=== PATIENT | female | born 1950 | race Hispanic/Latino ===

== ENCOUNTER 2024-11-16 16:29 | Emergency (ER) | payer OTHER ==
[~2024-11-16] VITALS: Ht 160 cm; Wt 68.0 kg
--- NOTE | 2024-11-16 16:39 | ERN ---
General Stated Complaint: ABD PAIN, LITTLE TO NO APPETITE Time Seen by MD: 16:30 Source: patient History of Present Illness Initial Comments PATIENT IS A 74-YEAR-OLD FEMALE COMING IN TO BE EVALUATED FOR DECREASED APPETITE. PATIENT STATES THAT FOUR WEEKS AGO SHE WAS DIAGNOSED WITH INFLUENZA AND SINCE THEN SHE STARTED FEELING WEAK TO THE POINT BARELY ABLE TO AMBULATE. PATIENT WAS EVALUATED BY PCP AND WAS TOLD SHE HAD POSSIBILITY OF HAVING LEUKEMIA. PATIENT IS HERE FOR FURTHER EVALUATION. PER PATIENT'S PCP IS DR. HERNDON Allergies: Coded Allergies: No Known Allergies (Unverified Allergy, Unknown, 11/16/24) ROS Dictation CONSTITUTIONAL: NO CHILLS, NO FEVER, NO WEAKNESS, NO DIAPHORESIS, NO MALAISE. HEAD/FACE: NO SIGNS OF TRAUMA. EENT: NO EYE PAIN, NO BLURRED VISION, NO TEARING, NO DOUBLE VISION, NO EAR PAIN, NO EAR DISCHARGE, NO NOSE PAIN, NO NASAL CONGESTION, NO THROAT PAIN, NO THROAT SWELLING, NO MOUTH PAIN. RESPIRATORY: NO COUGH, NO ORTHOPNEA, NO SOB, NO STRIDOR, NO WHEEZING. CARDIOVASCULAR: NO CHEST PAIN, NO EDEMA, NO PALPITATIONS, NO SYNCOPE. GASTROINTESTINAL/ABDOMINAL: NO ABDOMINAL PAIN, NO CONSTIPATION, NO DIARRHEA, NO NAUSEA, NO VOMITING. GENITOURINARY: NO ABNORMAL DISCHARGE, NO DYSURIA, NO FREQUENT URINATION, NO HEMATURIA. NO COMPLAINTS OF PAIN IN THE GENITALS. MUSCULOSKELETAL: NO BACK PAIN, NO GOUT, NO JOINT PAIN, NO JOINT SWELLING, NO MUSCLE PAIN, NO MUSCLE STIFFNESS, NO NECK PAIN. INTEGUMENTARY: NO CHANGE IN COLOR, NO CHANGE IN HAIR/NAILS, NO DRYNESS, NO LESION, NO LUMPS, NO RASH. NEUROLOGICAL/PSYCH: NO ANXIETY, NOT DEPRESSED, NO EMOTIONAL PROBLEM, NO HEADACHE, NO NUMBNESS, NO PRE-EXISTING DEFICIT, NO HISTORY OF SEIZURES, NO TREMORS, NO WEAKNESS. HEMATOLOGIC/LYMPHATIC: NOT ANEMIC, NO HISTORY OF BLOOD CLOTS, NO APPARENT BLEEDING, NO BRUISING, GLANDS NOT SWOLLEN. ALL SYSTEMS NEGATIVE, EXCEPT NOTED. Physical Exam Physical Exam Dictation VITAL SIGNS: REVIEWED. GENERAL APPEARANCE: ALERT, ORIENTED X3, NO ACUTE DISTRESS, OBESE. HEAD AND FACE: NON-TRAUMATIC. EYES: PERRL, PINK CONJUNCTIVAS, EYELID NO TRAUMA, ANTERIOR CHAMBER CLEAR. EARS: PINNAS INTACT AND NO SIGNS OF TRAUMA OR ERYTHEMA. EAR CANALS CLEAR AND NO DISCHARGE. TMS NO ERYTHEMA. NOSE: NO DISCHARGE, NO BLEEDING. OROPHARYNX: MOUTH NORMAL, TEETH NO CARIES, TONGUE PINK. PHARYNX CLEAR, NO ERYTHEMA. TONSILS NO EXUDATES, NO ABSCESSES NOTED. MUCOUS MEMBRANE MOIST. NECK: SUPPLE, NON-TENDER, NO THYROMEGALY, NO MASSES, NO JVD, NO BRUITS. BREAST: DEFERRED. CHEST: NO TENDERNESS, NO CREPITUS, NO PARADOXICAL MOVEMENT, NO RETRACTIONS. LUNGS: CLEAR, WELL-VENTILATED, SYMMETRIC, NO RALES, NO WHEEZING, NO RHONCHI, NO STRIDOR, GOOD BREATH SOUNDS BILATERALLY. HEART: REGULAR RATE, REGULAR RHYTHM, NO MURMUR, NO GALLOPS. VASCULAR: NO PERIPHERAL EDEMA. ABDOMEN: SOFT, POSITIVE BOWEL SOUNDS, NONDISTENDED, NO GUARDING, NONTENDER, NO REBOUND, NO MASSES NO HEPATOMEGALY, NO SPLENOMEGALY, NO NAIK'S SIGN, NO HERNIAS. RECTAL: DEFERRED. GENITAL: DEFERRED. NEUROLOGICAL: NORMAL SPEECH, GROSS MOTOR FUNCTION INTACT, GROSS SENSORY FUNCTION INTACT. MUSCULOSKELETAL: NECK NONTENDER, FULL RANGE OF MOTION, BACK NONTENDER, FULL RANGE OF MOTION. EXTREMITIES: NONTENDER, FULL RANGE OF MOTION. SKIN: COLOR PINK, DRY, NO TURGOR, NO RASH, NO LACERATIONS, NO ABRASIONS, NO CONTUSIONS. LYMPHATICS: DEFERRED. Results Laboratory and Microbiology Lab and Micro Result Laboratory Tests Test 11/16/24 16:50 11/16/24 18:30 White Blood Count 7.3 K/uL (4.8-10.8) Red Blood Count 2.97 MIL/uL (4.00-5.50) L Hemoglobin 9.5 g/dL (12.0-16.0) L Hematocrit 28.9 % (36-48) L Mean Corpuscular Volume 97.3 fL (79-99) Mean Corpuscular Hemoglobin 32.0 pg (27.0-33.0) Mean Corpuscular Hemoglobin Concent 32.9 g/dL (32.0-36.0) Red Cell Distribution Width 13.5 % (11.0-15.5) Platelet Count 211 K/uL (130-400) Mean Platelet Volume 9.5 fL (7.5-10.5) Immature Granulocyte % (Auto) 0.3 % (0-1) Neutrophils (%) (Auto) 45.2 % (40.0-77.0) Lymphocytes (%) (Auto) 46.6 % (21.0-51.0) Monocytes (%) (Auto) 7.3 % (3.0-13.0) Eosinophils (%) (Auto) 0.3 % (0.0-8.0) Basophils (%) (Auto) 0.3 % (0.0-5.0) Neutrophils # (Auto) 3.3 K/uL (1.8-7.7) Lymphocytes # (Auto) 3.4 K/uL (1.0-4.8) Monocytes # (Auto) 0.5 K/uL (0.1-1.0) Eosinophils # (Auto) 0.02 K/uL (0.00-0.70) Basophils # (Auto) 0.02 K/uL (0.00-0.20) Absolute Immature Granulocyte (auto 0.02 K/uL (0-1) Nucleated Red Blood Cells 0.0 % (0.0-0.19) Sodium Level 126 mmol/L (136-145) L Potassium Level 2.9 mmol/L (3.5-5.1) *L Chloride Level 94 mmol/L (101-111) L Carbon Dioxide Level 33 mmol/L (21-32) H Blood Urea Nitrogen 13 mg/dL (7-18) Creatinine 1.5 mg/dL (0.5-1.0) H Glomerular Filtration Rate Calc 36 mL/min (>90) Random Glucose 129 mg/dL (70-105) H Total Calcium 13.9 mg/dL (8.5-10.1) *H Total Bilirubin 0.3 mg/dL (0.2-1.0) Aspartate Amino Transf (AST/SGOT) 24 U/L (10-37) Alanine Aminotransferase (ALT/SGPT) 26 U/L (12-78) Alkaline Phosphatase 72 U/L (50-136) Total Creatine Kinase 141 U/L (21-232) Troponin I High Sensitivity 40.2 ng/L (4-50) Total Protein 13.8 g/dL (6.0-8.3) H Albumin 2.5 g/dL (3.5-5.0) L Lipase 17 U/L (16-77) Urine Color YELLOW (YELLOW) Urine Appearance CLOUDY (CLEAR) H Urine pH 6.5 (5.0-8.0) Urine Specific [place] 1.019 (1.001-1.031) Urine Protein 70 mg/dL (NEGATIVE) H Urine Glucose (UA) NEGATIVE mg/dL (NEGATIVE) Urine Ketones NEGATIVE mg/dL (NEGATIVE) Urine Occult Blood SMALL (NEGATIVE) H Urine Nitrate 1+ (NEGATIVE) H Urine Bilirubin NEGATIVE mg/dL (NEGATIVE) Urine Urobilinogen 0.2 mg/dL (0.2-1.0) Urine Leukocyte Esterase 500 Jak/uL (NEGATIVE) H Urine RBC 11-25 /HPF (0-1) H Urine WBC 26-50 /HPF (0-1) H Urine Squamous Epithelial Cells FEW /HPF (0-2) Urine Other Crystals (Auto) 4 /HPF (None Seen) Urine Bacteria FEW /HPF (None Seen) Urine Hyaline Casts 2-5 /LPF (0-1 /LPF) H Urine Granular Casts (Auto) 0-1 /LPF (None Seen) Urine Other Casts 14 /LPF (None Seen) Labs Reviewed?: Yes EKG/XRAY/US/CT/MRI EKG Comment DATE 11/16/2024 TIME 5:09 P.M. VENTRICULAR RATE [address] SIN[address]THM [place] [address] WAVE ELEVATION OR DEPRESSION MDM MDM: DIFFERENTIAL DIAGNOSIS: RATIONALE: TESTS CONSIDERED AND ORDERED SECONDARY TO SHARED DECISION MAKING INCLUDE: PREVIOUS OUTSIDE RECORDS REVIEWED: OLD ER VISITS. RISK OF COMPLICATION AND/OR MORBIDITY OR MORTALITY OF PATIENT MANAGEMENT: NONE MEDICATIONS-PER MEDICATION RECONCILIATION NEED FOR HOSPITALIZATION: PATIENT DOES NOT MEET CRITERIA FOR HOSPITALIZATION. NEED FOR EMERGENCY MAJOR/MINOR SURGERY: NO THERE ARE NO SOCIAL CONCERNS WITH THIS PATIENT. PRESCRIPTION DRUG MANAGEMENT PRESCRIPTIONS WILL INCLUDE SYMPTOMATIC CARE PATIENT'S PRIOR EXTERNAL MEDICAL RECORDS FROM OTHER ER VISITS WERE REVIEWED BY ME INDICATED. PRIOR TESTING AND RESULTS FROM PREVIOUS VISITS WERE REVIEWED. PRIOR TESTS WERE TAKEN INTO ACCOUNT WITH MEDICAL DECISION MAKING AND RESOURCE UTILIZATION, INDEPENDENT HISTORIAN/HISTORIANS WERE USED TO OBTAIN COMPLETE MEDICAL HISTORY. I INDEPENDENTLY INTERPRETED THE TEST THAT WERE PERFORMED, RESULTS WERE REVIEWED BY ME AND CONSIDERED FINDINGS ON RADIOLOGY IF ORDERED. MEDICAL MANAGEMENT AND EXAMINATION INTERPRETATION DISCUSSIONS WERE HAD BY ME WITH OTHER QUALIFIED HEALTHCARE PROFESSIONALS INDICATED FOR THE PATIENT'S CARE. ED Course Orders Procedure Category Date Status Time Cbc With Differential LAB 11/16/24 Complete 16:34 Comprehensive LAB 11/16/24 Complete Metabolic Panel 16:34 Urinalysis Profile LAB 11/16/24 Complete 16:34 12 Lead Ekg Tracing- EKG 11/16/24 Complete Technical 16:34 Lactated Ringers PHA 11/16/24 Complete 1000ml (Lactated 17:00 Chest 1vw RAD 11/16/24 Resulted 16:34 Lipase LAB 11/16/24 Complete 16:34 Cardiac Panel LAB 11/16/24 Complete 16:50 Ct Abdomen/Pelvis W/O CT 11/16/24 Taken Contrast 18:20 Culture Urine SHAKIR 11/16/24 In Process 18:59 Potassium Bicarb/Cit PHA 11/16/24 Transmitted Ac 25meq (K-Lyte Ta 21:30 Ondansetron 4mg Inj PHA 11/16/24 Transmitted (Zofran 4mg Inj) 21:30 Ceftriaxone 1g Vial PHA 11/16/24 Transmitted (Rocephine 1g Inj) 21:30 Current Medications Medications (Trade) Dose Ordered Sig/Satnam Route PRN Reason Start Time Stop Time Status Last Admin Dose Admin Lactated Ringer's 1,000 ml @ 0 mls/hr ONCE ONCE IV 11/16/24 17:00 11/16/24 17:50 DC Ondansetron HCl (zoFRAN 4MG INJ) 4 mg ONCE ONCE IVP 11/16/24 21:30 11/16/24 21:31 UNV Potassium Bicarbonate (K-Lyte Tablet Eff 25 Meq Tablet.eff) 50 meq ONCE ONCE PO 11/16/24 21:30 11/16/24 21:31 UNV Vital Signs Date Time Temp Pulse Resp B/P (MAP) Pulse Ox O2 Delivery O2 Flow Rate FiO2 11/16/24 17:31 96.3 55 20 186/81 98 Room Air 7:10 p.m. patient was signed out to me by morning physician to follow up on labs and further management this is a 74-year-old female who presented with poor appetite since October apparently had flu-like symptoms initially and for 2-3 weeks she was extremely weak and had poor appetite nausea vomitings. She was evaluated in the last few weeks by her per primary care physician and was noted to have abnormal labs and there was a concern for bone cancer and she had a bone marrow biopsy done and the results of which are pending at the time of this time per daughter they will follow up with the physician on November 29 for the results. In the interim patient was concerned that she is not able to eat anything and she likes eating. So they brought her to the ER for evaluation Temperature 96.3 pulse 55 respirations 20 blood pressure 186/81 with a pulse oximetry of 98% on room air Physical examination is quite unremarkable except that she appears weak Her chronic medical problems include diabetes mellitus, hypercholesterolemia and hypertension Labs reviewed CBC showed a hemoglobin of 9.5 BNP 7 showed a sodium of 126 K 2.9 BUN and creatinine are 13 and 1.5. White count is 7.3 urinalysis was abnormal with positive leuko esterase and WBC count of 26-50 I offered admission to the hospital for IV hydration antibiotics and symptom management for 48 hours. Patient declined and would like to be discharged to home after the treatment. I recommended at least hydration and potassium repletion and antiemetic and they were agreeable DX & DISP Disposition: Discharge Departure Impression: Primary Impression: Anorexia Additional Impressions: Bone cancer, Dehydration, Hypokalemia Condition: Stable Scripts Nitrofurantoin Macrocrystal (Nitrofurantoin) 100 Mg Capsule 1 CAP PO BID for 7 Days, #14 CAP 0 Refills Prov: KALLIE GREGG MD 11/16/24 Ondansetron (Ondansetron Odt) 4 Mg Tab.rapdis 4 MG PO Q6HPRN PRN for nausea, #16 TAB 0 Refills Prov: KALLIE GREGG MD 11/16/24 Additional Instructions: Patient and the caregiver have been informed of all the diagnostic tests and the imaging conducted during the today's visit to the emergency room and has v erbalized understanding of the results I have personally reviewed and interpreted all diagnostic exams performed here in the ER today as well as the vital signs documented by the nursing staff. The patient is now being discharged to home and should follow up with the primary care physician or the specialist as directed by the ER staff. Follow-up with primary care provider in 1 to 2 days. Take medications as directed here in the emergency room. Okay to continue home medications unless otherwise discussed during your visit in the emergency room today. Return to your nearest emergency room if symptoms worsen or if there is no improvement. Call 911 if you need immediate assistance. Take Tylenol or Motrin [id number] as needed and if no contraindications are present. Increase oral hydration. A wound culture or urine culture was ordered here in the emergency room department please follow-up with primary care provider and advise them to get repeat ports from our facility. If you had any Lorenzo wrap/splints that were applied here, please do not remove them until you see your primary care or specialty. Referrals: SELF,REFERRAL (PCP) GIRISH LEBRON MD Nov 16, 2024 16:39 KALLIE GREGG MD Nov 16, 2024 21:28
[2024-11-16 16:54] LABS: BASOPHILS # (AUTO) 0.02 K/uL (0.00-0.20); BASOPHILS % (AUTO) 0.3 % (0.0-5.0); EOSINOPHILS # (AUTO) 0.02 K/uL (0.00-0.70); EOSINOPHILS % (AUTO) 0.3 % (0.0-8.0); HEMATOCRIT 28.9 % (36-48); IMMATURE GRANULOCYTE ABSOLUTE 0.02 K/uL (0-1); LYMPHOCYTES # (AUTO) 3.4 K/uL (1.0-4.8); LYMPHOCYTES % (AUTO) 46.6 % (21.0-51.0); MEAN CORPUSCULAR HGB CONC 32.9 g/dL (32.0-36.0); MEAN CORPUSCULAR VOLUME 97.3 fL (79-99); MONOCYTES # (AUTO) 0.5 K/uL (0.1-1.0); MONOCYTES % (AUTO) 7.3 % (3.0-13.0); NEUTROPHILS # (AUTO) 3.3 K/uL (1.8-7.7); NEUTROPHILS % (AUTO) 45.2 % (40.0-77.0); PLATELET COUNT (AUTO) 211 K/uL (130-400); RED BLOOD CELL COUNT(AUTO) 2.97 MIL/uL (4.00-5.50); RED CELL DISTRIBUTION WIDTH 13.5 % (11.0-15.5); WHITE BLOOD COUNT (AUTO) 7.3 K/uL (4.8-10.8)
[2024-11-16] MEDS: LACTATED RINGERS 1000ML 1,000 ML IV ONE ×2 (17:00→22:13)
--- NOTE | 2024-11-16 17:11 | EKG ---
[facility] Test Date: 2024-11-16 Test Time: 17:09:21 Pat Name: ARTIE HOLLINGSWORTH Department: [facility] Room: Gender: F Theater Usher: [id number] : [id number] Requested By: GIRISH LEBRON Order Number: [id number] Reading MD: Alexys Zavala Measurements Intervals [place] Rate: 63 P: 37 DC: 212 QRS: 10 QRSD: 99 T: 34 QT: 370 QTc: 380 Interpretive Statements Sinus rhythm Borderline prolonged DC interval No previous ECG available for comparison Electronically Signed On 11-17-2024 10:28:32 CDT by Alexys Zavala Please click the below link to view image of tracing.
[2024-11-16 17:31] LABS: ALBUMIN 2.5 g/dL (3.5-5.0); BILIRUBIN,TOTAL 0.3 mg/dL (0.2-1.0); CREATININE 1.5 mg/dL (0.5-1.0); TOTAL PROTEIN, SERUM 13.8 g/dL (6.0-8.3)
[2024-11-16 17:38] LABS: POTASSIUM 2.9 mmol/L (3.5-5.1)
--- NOTE | 2024-11-16 17:56 | HMCIMG ---
PORTABLE CHEST RADIOGRAPH INDICATION: weakness COMPARISON: None FINDINGS: Heart size is normal. The pulmonary vascularity and mora appear normal. No abnormal pulmonary parenchymal opacity or consolidation identified. 3.0 cm lateral right chest wall pleural thickening. No pneumothorax detected. IMPRESSION: 3.0 cm lateral right chest wall pleural thickening. CT imaging of the chest is advised for further evaluation.
[2024-11-16 18:58] LABS: APPEARANCE,URINE CLOUDY (CLEAR); BILIRUBIN,URINE NEGATIVE (NEGATIVE); COLOR,URINE YELLOW (YELLOW); GLUCOSE, URINE (UA) NEGATIVE (NEGATIVE); KETONES,URINE NEGATIVE (NEGATIVE); LEUKOCYTE ESTERASE ,URINE 500 Leu/uL (NEGATIVE); NITRATE,URINE 1+ (NEGATIVE); OCCULT BLOOD,URINE SMALL (NEGATIVE); PH,URINE 6.5 (5.0-8.0); PROTEIN,URINE 70 mg/dL (NEGATIVE); UROBILINOGEN,URINE 0.2 mg/dL (0.2-1.0)
[2024-11-16 18:59] LABS: ADD UA MICROSCOPIC YES
[2024-11-16 19:01] LABS: BACTERIA,URINE FEW /HPF (None Seen); MUCUS,URINE RARE LPF (None Seen); OTHER CASTS, URINE 14 /LPF (None Seen); SQUAMOUS EPITHELIAL CELL,UR FEW /HPF (0-2); UNCLASSIFIED CRYSTAL 4 /HPF (None Seen); WBC,URINE 26-50 /HPF (0-1)
--- NOTE | 2024-11-16 21:24 | HMCIMG ---
Exam Type: CT ABDOMEN/PELVIS W/O CONTRAST Clinical Information: ABD PAIN Comparison: None CT Dose Index (CTDI): 10.20 mGy Dose Length Product (DLP): 530.00 total mGy-cm PROTOCOL: Routine noncontrast helical scanning of the abdomen and pelvis was performed at 5mm collimation. Findings: No evidence of nephro or ureterolithiasis is found. No hydronephrosis or ureteral dilatation is seen. lung lesion versus rib lesion right side lower lateral hemithorax 4.3 cm The stomach is unremarkable. It shows no wall thickening. No gross ulceration is seen. It is not overly distended. There are no surrounding inflammatory changes. No wall lesions are identified to suggest cancer. The spleen is unremarkable. It is not enlarged. The pancreas shows normal anatomy. It is not fatty replaced. It shows no lesions. The pancreatic duct is not dilated. The gallbladder is unremarkable. It shows no cholelithiasis. The gallbladder wall is normal in thickness. There is no pericholecystic fluid. The is no acute or chronic inflammation noted. The adrenal glands are unremarkable. There is no enlargement. No lesions are noted. The liver is unremarkable. It shows no focal masses. The appendix is unremarkable. It shows no evidence of inflammation. No appendicolith is seen. The small bowel is unremarkable. There is no evidence of dilatation to suggest obstruction. No evidence of adynamic ileus is seen. There is no small bowel wall thickening to suggest enteritis. The colon is unremarkable. The urinary bladder is unremarkable. There is no wall thickening to suggest tumor or inflammation. There are no intraluminal calculi. There are no diverticula. There is no evidence of chronic bladder outlet obstruction. There is no evidence of urinary bladder distention to suggest urinary retention. The other pelvic structures are unremarkable. The bony and vascular structures are unremarkable for the patient's age. IMPRESSION: lung lesion versus rib lesion right side lower lateral hemithorax 4.3 cm This study was performed using dose reduction techniques to include automated exposure control and/or adjustment of the mA and/or kV according to patient size.
[2024-11-16] MEDS ORDERED: ONDA-243 PO (21:26)
[2024-11-16] MEDS ORDERED: NITR100C PO (21:27)
[2024-11-16] MEDS: cefTRIAXone 1G VIAL IVPB ONE (22:12)
[2024-11-16] MEDS: ondanSETRON 4MG INJ IVP ONE (22:12)
[2024-11-16] MEDS: PoTASSium BIcarbonate/CIT AC 25 MEQ TABLET.EFF PO ONE (22:14)
[2024-11-17] MEDS: hydrALAZine 20MG/ML VIAL IV ONE (01:09)
[2024-11-17 01:37] VITALS: BP 155/57; PULSE 61; RESP 18; TEMP 98.4; O2SAT 99
== END 2024-11-17 01:38 | disposition home or self-care (01) ==
LOC: EDH 16:29
DX: R63.0 Anorexia (principal); E86.0 Dehydration; E87.6 Hypokalemia; C41.9 Malignant neoplasm of bone and articular cartilage, unspecified
CPT/HCPCS: 99285; 74176; 96365; 71045; 96375 ×2; 82550; 84484; 80053; 83690; 85025; 87086 ×2; 87186; 81001; 36415; 93005; J0696; J2405; J7120; J0360